=== PATIENT | female | born 1980 | race Asian ===

== ENCOUNTER 2023-05-24 21:19 | Emergency (ER) | payer OTHER ==
[~2023-05-24] VITALS: Ht 167.6 cm; Wt 75.0 kg
[2023-05-24 21:39] VITALS: TEMP 98
[2023-05-24] MEDS ORDERED: IBUP-1493 PO (21:48)
[2023-05-24] MEDS ORDERED: ACET-3385 PO (21:48)
[2023-05-24] MEDS ORDERED: antidepressant PO (21:48)
[2023-05-24] MEDS ORDERED: ESZO2TAB46 PO (21:48)
[2023-05-24] MEDS ORDERED: IBUPROFEN 600 MG TABLET PO ONE (23:45)
[2023-05-24] MEDS ORDERED: CEPHALEXIN MONOHYDRATE 500 MG CAPSULE PO ONE (23:45)
[2023-05-24] MEDS ORDERED: HYDROCODONE/ACETAMINOPHEN 5-325 MG TABLET PO ONE (23:45)
[2023-05-24] MEDS ORDERED: CEPH-558 PO (23:56)
[2023-05-24] MEDS ORDERED: HYDR-4723 PO (23:56)
[2023-05-24] MEDS ORDERED: IBUP-1554 PO (23:56)
[2023-05-25 00:11] VITALS: BP 114/68; PULSE 84; RESP 18
== END 2023-05-25 00:12 | disposition home or self-care (01) ==
LOC: EMS 21:20
DX: J02.0 Streptococcal pharyngitis (principal)
CPT/HCPCS: 87430; 99284; Z7502; Z7610